=== PATIENT | female | born 1950 | race Caucasian/White ===

== ENCOUNTER 2024-06-28 19:47 | Emergency (ER) | payer OTHER, SELFPAY ==
--- NOTE | ~2024-06-28 | US_ITS ---
EXAMINATION: US venous doppler [facility] DATE: 06/28/2024 22:34 INDICATION: Left lower limb edema and pain. TECHNIQUE: Grayscale ultrasound images without and with compression and Doppler ultrasound images of the left lower extremity veins were obtained. COMPARISON: None. FINDINGS: The visualized portions of left common femoral vein, profunda (deep) femoral vein, femoral vein, popl iteal vein, peroneal veins, posterior tibial veins, and greater saphenous vein outflow are patent. Th ere is a thrombosed varicose vein in the left calf. IMPRESSION: 1. No deep venous thrombosis. 2. Thrombosed varicose vein in the left calf. Reviewed, dictated and finalized at location A. [facility]
[2024-06-28 19:56] VITALS: BP 123/55; PULSE 72; RESP 18; TEMP 36.8; O2SAT 100
[2024-06-28 21:39] VITALS: PULSE 82; RESP 20
--- NOTE | 2024-06-28 21:56 | ED.EXTPRO ---
HPI - Extremity Problem General Chief complaint: Extremity Problem,Nontraumatic Stated complaint: L ankle swelling Time Seen by Provider: 06/28/24 21:48 Source: patient Mode of arrival: ambulatory Limitations: no limitations History of Present Illness HPI Narrative: This is a 73-year-old female that presents to the emergency department for left extremity pain. Reports she has had swelling, warmth and pain around some varicose veins in the left calf. She has been evaluated by her primary provider for this. Had a ultrasound of the leg. Reports she had no blood clots but was started on Xarelto. She has been taking tramadol without relief. Denies fevers. Related Data Allergies Allergy/AdvReac Type Severity Reaction Status Date / Time adhesive tape AdvReac Unknown Verified 06/28/24 19:49 Review of Systems Review of Systems: CONSTITUTIONAL: Denies fever CARDIOVASCULAR: Reports edema. Denies chest pain RESPIRATORY: Denies dyspnea. All systems reviewed & are unremarkable except as noted in HPI and below PMFSH Past Medical History Medical History (Updated 06/28/24 @ 23:36 by Christina Brunson PA-C) History of hyperlipidemia Social History Social History (Updated 06/28/24 @ 21:58 by Christina Brunson PA-C) Substance use: never Exam Narrative: GENERAL: Well-appearing, well-nourished, and in no acute distress. HEAD: Normocephalic, atraumatic. EYES: EOMI. CHEST: Clear to auscultation. No respiratory distress. No wheezes rales or rhonchi HEART: Regular rate and rhythm. No murmur heard. Normal peripheral pulses. EXTREMITIES: Normal range of motion. Edema with mild redness noted surrounding varicosities to the left calf. Normal DP pulses SKIN: Warm, dry, no rash. NEURO: No focal deficits. Alert and oriented x3. PSYCH: Normal mood and affect Course Course Emergency Course: patient updated on workup and agrees with plan of care Vital Signs Vital signs: Vital Signs Temperature 98.2 F 06/28/24 19:56 Pulse Rate 72 06/28/24 19:56 Respiratory Rate 18 06/28/24 19:56 Blood Pressure 123/55 L 06/28/24 19:56 Pulse Oximetry 100 06/28/24 19:56 Oxygen Delivery Room Air 06/28/24 19:56 Temperature 98.2 F 06/28/24 19:56 Pulse Rate 68 06/28/24 22:53 Respiratory Rate 17 06/28/24 22:53 Blood Pressure 123/55 L 06/28/24 19:56 Pulse Oximetry 98 06/28/24 22:53 Oxygen Delivery Room Air 06/28/24 19:56 MDM - Extremity (Nontraumatic) MDM Narrative Medical decision making narrative: Patient presents the emergency department for pain in the left calf in the area of a varicosity. She is afebrile and nontoxic appearing. Her vitals are stable. Cbc without leukocytosis. ESR is mildly elevated, CRP is not elevated. Left lower extremity venous Doppler without evidence of DVT. Does show a thrombosed varicose vein. There is mild surrounding redness warmth. Patient will be started on oral antibiotic. She is also on anticoagulation prescribed by her PCP. She has follow-up with vascular in the next couple of days. She was given warnings to return to the ER Differential Diagnosis Differential diagnosis: Likely cellulitis, superficial thrombophlebitis and deep vein thrombosis of lower extremity Lab Data Attestation: I reviewed the patient's lab results. 06/28/24 22:32 06/28/24 22:32 Labs: Lab Results 06/28/24 Range/Units 22:32 WBC 4.4 L (4.5-10.0) K/mm3 RBC 3.60 L (4.2-5.4) M/mm3 Hgb 12.0 (12.0-15.0) g/dL Hct 35.5 L (37.0-47.0) % MCV 98.6 (80-100) fl MCH 33.3 (26-34) pg MCHC 33.8 (32-36) g/dl RDW 12.6 (11.5-14.5) % Plt Count 259 (150-375) k/mm3 MPV 8.6 (7.4-10.4) fl Immature Gran % (Auto) 0.5 (0-0.5) % Neut % (Auto) 51.3 (45.5-73.1) % Lymph % (Auto) 32.9 (18.3-44.2) % [place] % (Auto) 9.2 H (2.6-8.5) % Eos % (Auto) 5.6 H (0-4.4) % Baso % (Auto) 0.5 (0.2-1.2) % Lymph # (Auto) 1.46 (0.9-3.2) K/mm3 [place] # (Auto) 0.4 (0.1-0.6) K/mm3 Eos # (Auto) 0.3 (0-0.3) K/mm3 Baso # (Auto) 0.0 (0.0-0.1) K/mm3 Abs Immat Gran (auto) 0.02 (0.00-0.031) K/mm3 Absolute Neuts (auto) 2.3 (1.3-6.7) K/mm3 Absolute Nucleated RBC 0.000 (0.0-0.012) K/mm3 Nucleated RBC % 0.0 (0.0-0.2) % ESR 24 H (0-20) mm/hr Sodium 137 (137-145) mmol/L Potassium 3.5 (3.4-5.0) mmol/L Chloride 104 (98-107) mmol/L Carbon Dioxide 30 (22-30) mmol/L Anion Gap 3 L (4-12) mmol/L BUN 27 H (7-17) mg/dL Creatinine 0.70 (0.7-1.0) mg/dL Estim Creat Clear Calc 60 ml/min Estimated GFR > 60 (59 - ) Glucose 105 (65-110) mg/dL Calcium 10.8 H (8.4-10.2) mg/dL C-Reactive Protein < 0.5 (<1.0) mg/dL Imaging Data Radiologist's impression: ITS Impressions Venous Doppler Study 06/28/24 22:35 IMPRESSION: 1. No deep venous thrombosis. 2. Thrombosed varicose vein in the left calf. Critical Care Time Critical Care Time Critical Care Time: No Discharge Plan Discharge Clinical Impression: Superficial thrombophlebitis Qualifiers: Superficial thrombophlebitis-Involved body area: lower extremity Laterality: left Qualified Code(s): I80.02 - Phlebitis and thrombophlebitis of superficial vessels of left lower extremity Patient Disposition: Home, Self-Care Condition: Stable Instructions: Antibiotic Form, Superficial Thrombophlebitis (ED) Additional Instructions: Return to the Emergency Department if you experience fever, chest pain, shortness of breath, or any other symptoms that are concerning to you Take oral antibiotic as prescribed Follow up with vascular doctor as scheduled Patient Language: [place] Prescriptions: New cephalexin 500 mg capsule 500 mg PO Q6H 7 Days Qty: 28 0RF Follow-up/Referrals: PHYSICIAN NOT ON STAFF,NONSTAFF [Non-Staff] -
[2024-06-28 22:00] VITALS: PULSE 68; RESP 19; O2SAT 99
[2024-06-28 22:15] VITALS: PULSE 69; RESP 13; O2SAT 98
[2024-06-28 22:30] VITALS: PULSE 68; RESP 16; O2SAT 99
[2024-06-28 22:37] LABS: Basophils Percent Auto 0.5 % (0.2-1.2); Eosinophils Absolute Auto 0.3 K/mm3 (0-0.3); Eosinophils Percent Auto 5.6 % (0-4.4); Hematocrit 35.5 % (37.0-47.0); Immature Granulocyte Absolute 0.02 K/mm3 (0.00-0.031); Immature Granulocyte Percent A 0.5 % (0-0.5); Lymphocytes Absolute Auto 1.46 K/mm3 (0.9-3.2); Lymphocytes Percent Auto 32.9 % (18.3-44.2); Mean Corpuscular HGB Conc 33.8 g/dl (32-36); Mean Corpuscular Hemoglobin 33.3 pg (26-34); Mean Corpuscular Volume 98.6 fl (80-100); Mean Platelet Volume 8.6 fl (7.4-10.4); Monocytes Absolute Auto 0.4 K/mm3 (0.1-0.6); Monocytes Percent Auto 9.2 % (2.6-8.5); Neutrophils Absolute Auto 2.3 K/mm3 (1.3-6.7); Neutrophils Percent Auto 51.3 % (45.5-73.1); Platelet Count Result 259 k/mm3 (150-375); Red Cell Distribution Width 12.6 % (11.5-14.5); White Blood Count 4.4 K/mm3 (4.5-10.0)
[2024-06-28 22:48] LABS: Anion Gap 3 mmol/L (4-12); Blood Urea Nitrogen 27 mg/dL (7-17); CRP < 0.5 mg/dL (<1.0); Calcium 10.8 mg/dL (8.4-10.2); Carbon Dioxide 30 mmol/L (22-30); Chloride 104 mmol/L (98-107); Estimated CRCL calculation 60 ml/min; Estimated Glomerular Filt Rate > 60; Glucose 105 mg/dL (65-110); Potassium 3.5 mmol/L (3.4-5.0); Sodium 137 mmol/L (137-145)
[2024-06-28] MEDS: HYDROcodone/acetaminophen (*CRX) 5-325 MG TABLET 1 TAB PO (22:48)
[2024-06-28 22:53] VITALS: PULSE 68; RESP 17; O2SAT 98
[2024-06-28 23:32] LABS: Erythrocyte Sedimentation Rate 24 mm/hr (0-20)
[2024-06-29 00:16] VITALS: BP 126/59; PULSE 72; RESP 14; O2SAT 99
== END 2024-06-29 00:18 | disposition home or self-care (01) ==
PROVIDERS: Emergency Provider Physician Assistant
DX: I80.02 Phlebitis and thrombophlebitis of superficial vessels of left lower extremity (principal); E78.5 Hyperlipidemia, unspecified; Z79.01 Long term (current) use of anticoagulants
CPT/HCPCS: 36415; 80048; 85025; 85652; 86140; 93971; 99284; A9270

== ENCOUNTER 2025-03-25 08:13 | Outpatient (CLI) | payer OTHER, SELFPAY ==
[2025-03-25 08:48] LABS: Hematocrit 39.5 % (37.0-47.0); Hemoglobin 13.2 g/dL (12.0-15.0); Immature Granulocyte Percent A 0.2 % (0-0.5); Lymphocytes Absolute Auto 1.15 K/mm3 (0.9-3.2); Mean Corpuscular HGB Conc 33.4 g/dl (32-36); Mean Corpuscular Hemoglobin 33.0 pg (26-34); Mean Corpuscular Volume 98.8 fl (80-100); Nucleated Red Blood Cells Absolute Auto 0.000 K/mm3 (0.0-0.012); Nucleated Red Blood Cells Perc 0.0 % (0.0-0.2); Platelet Count Result 227 k/mm3 (150-375); Red Blood Count 4.00 M/mm3 (4.2-5.4); White Blood Count 4.6 K/mm3 (4.5-10.0)
--- OUTSIDE RECORDS SUMMARY | 2025-03-25 09:00 | XMS_ITS | Clinical Summary ---
Author Organization [facility] Address [address] [place] [address] Care Team Providers Care Auto Cleaner Name Role Phone Narciso Snow DO Primary Care Provider [phone] Source Comments [facility],non-owned Affiliates and Associated Physician Practices is amultiple site organization consisting of ambulatory clinics and hospital sitesin [place], [place], [place] and [place]. This disclosure is being madepursuant to the Care Everywhere program and may not contain all information available regarding this patient. Last updated 18.[facility] [employer] Allergies Active Allergy Reactions Criticality Noted Date Comments Adhesive Sensitivity Urticaria Medium 12/25/2018 Amlodipine Base Other 11/11/2021 Codeine Unknown 11/11/2021 Penicillins Vomiting High 09/24/2014 Medications * Be aware that medications may not be up to date on this document. Alwaysverify current medications with the patient. meclizine (ANTIVERT) 25 MG tablet Take 1 tablet by mouth 3 times daily as needed for Dizziness 21 tablet 9 Active hydrALAZINE (APRESOLINE) 50 MG tablet Take 50 mg by mouth at bedtime Active Turmeric 500 MG Take by mouth at bedtime Active CINNAMON PO Take 100 mg by mouth at bedtime Active rosuvastatin (CRESTOR) 40 MG tablet Take 40 mg by mouth once daily Active irbesartan (AVAPRO) 300 MG tablet Take 300 mg by mouth once daily Active alendronate (FOSAMAX) 70 MG tablet PLEASE SEE ATTACHED FOR DETAILED DIRECTIONS 2 Active calcium carbonate (OS-SHANTELL 500) 1250 (500 Ca) MG tablet Take by mouth every 12 hours 2 Active celecoxib (CELEBREX) 200 MG capsule Take 1 capsule by mouth every 24 hours 2 Active vitamin D3 (CHOLECALCIFERO L) (25 MCG) 1000 UNIT capsule Take by mouth every 24 hours 2 Active clobetasol (TEMOVATE) 0.05 % ointment Apply to affected area every 12 hours Active hydroCHLOROthia zide (HYDRODIURIL) 25 MG tablet Take 1 tablet by mouth once daily 2 Active metoprolol succinate XL 24hr (TOPROL XL) 50 MG tablet TAKE 1 TABLET BY MOUTH EVERYDAY AT BEDTIME 2 Active triamcinolone acetonide (KENALOG) 0.1 % cream APPLY TOPICALLY 2 TIMES EVERY DAY A THIN LAYER TO THE LEFT LOWER LEG 2 Active zinc gluconate 50 MG tablet Take by mouth every 24 hours 2 Active Active Problems Problem Noted Date Diagnosed Date High cholesterol 11/11/2021 Family history of other specified conditions 10/2021 Vitamin D deficiency 02/23/2021 Myalgia due to statin 02/23/2021 Generalized OA 02/23/2021 Generalized anxiety disorder 10/20/2020 Gastroesophageal reflux disease 10/20/2020 Acute deep vein thrombosis (DVT) of right lower extremity 09/19/2019 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/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 Right rotator cuff tear arthropathy 05/07/2019 Vertigo 12/26/2018 Varicose veins of lower extremity 10/13/2017 Unspecified atrial fibrillation 11/18/2014 Symptomatic bradycardia 09/24/2014 Dizzy 09/24/2014 Dizziness and giddiness 11/29/2009 Hypertension 09/19/2008 Trigger finger 04/22/2008 Depressive disorder 04/21/2004 Psoriasis 12/20/2003 Allergic rhinitis due to pollen 12/10/2002 Immunizations Immunization Administration Dates Next Due [employer] primary monoval ent 12+ yr 0.3mL Purple cap 06/24/2021,11/23/2020,10/26/2020 TDAP (7yrs+) 10/05/2021 Family History Medical History Relation Name Comments Hypertension Mother Relation Name Status Comments Mother Social History Tobacco Use Types Packs/Day Years Used Date Smoking Tobacco: Never Smokeless Tobacco: Never Alcohol Use Standard Drinks/Week Comments Yes 0 (1 standard drink = 0.6 oz pur e alcohol) occassionally Comments Unknown Sex and Gender Information Value Date Recorded Sex Assigned at Not on file Legal Sex Female 6:03 AM LEASING COORDINATOR Gender Identity Not on file Sexual Orientation Not on file Last Filed Vital Signs Vital Sign Reading Time Taken Comments Blood Pressure 130/67 09/02/2019 9:10 AM LEASING COORDINATOR Pulse 65 09/02/2019 9:10 AM LEASING COORDINATOR Temperature 36.2 C (97.2 F) 09/02/2019 7:15 AM LEASING COORDINATOR Respiratory Rate 18 09/02/2019 7:15 AM LEASING COORDINATOR Oxygen Saturation 92% 09/02/2019 7:15 AM LEASING COORDINATOR Inhaled Oxygen Concentration - - Weight 78.5 kg (173 lb) 11/11/2021 8:39 AM CDT Height 167.6 cm (5' 6) 11/11/2021 8:39 AM CDT Body Mass Index 27.92 11/11/2021 8:39 AM CDT Plan of Treatment Health Maintenance Due Date Last Done Comments BONE DENSITY TESTING 1950 COLOGUARD (AGES 45-75) - COL ON CA SCREENING 1950 CT COLONOGRAPHY - COLON CA SCREENING 1950 FIT - COLON CA SCREENING 1950 FLEX SIG - COLON CA SCREENING 1950 MAMMOGRAM 1950 HEPATITIS C SCREENING 06/29/1968 PNEUMOCOCCAL VACCINE 50+ (1 of 1 - PCV) 2000 ZOSTER VACCINE (1 of 2) 2000 DEPRESSION SCREENING 07/11/2024 COVID-19 VACCINE (4 - 2024-2 6 season) 2025 06/24/2021, 11/23/2020, 10/26/2020 INFLUENZA VACCINE (#1) 2025 Respiratory Syncytial Virus (RSV) Vaccine Pt: or over 60 yrs (1 - 1-dose 75+ series) 2025 COLON MONITORING 05/04/2031 05/04/2021 COLONOSCOPY - COLON CA SCREENING 05/04/2031 05/04/2021 Colorectal Cancer Screening 05/04/2031 DTAP/TDAP/TD VACCINES (2 - T d or Tdap) 10/06/2031 10/05/2021 HEPATITIS B VACCINE Aged Out No longe r eligible based on patient's age to complete this topic HIB VACCINE Aged Out No longer eligi ble based on patient's age to complete this topic HPV VACCINE Aged Out No longer eligi ble based on patient's age to complete this topic MENINGOCOCCAL (Group B) VACCINE SHARED DECISION-MAKING Aged Out No longer eligible based on patient's age to complete this topic MENINGOCOCCAL GROUPS A/C/Y/W VACCINE Aged Out No longer eligible b ased on patient's age to complete this topic Medical Devices Implanted Type Area Maintenance Services Dispatcher Device Identifier Shelf Expiration Date Model / Serial / Lot Screw 4.75mm 25mm 3.5mm Lck Fx Ang Hex Implanted:Qty: 1 on 08/31/2019 by Malissa Villa MD at [facility] Right: Shoulder [employer] 07/21/2029 [id number] / / [id number] Vivacit E Polyethylene Bearing Standard 36mm Implanted:Qty: 1 on 08/31/2019 by Malissa Villa MD at [facility] Right: Shoulder 08/10/2024 [id number] / / [id number] Screw 4.75mm 15mm 3.5mm Lck Fx Ang Hex Implanted:Qty: 1 on 08/31/2019 by Malissa Villa MD at [facility] Right: Shoulder [employer] 04/24/2029 [id number] / / [id number] Bsplt Tib Cmprh 25mm Mini Tpr Adpr Rvrs Implanted:Qty: 1 on 08/31/2019 by Malissa Villa MD at [facility] Right: Shoulder [employer] 07/18/2029 [id number] / / [id number] Screw 4.75mm 15mm 3.5mm Lck Fx Ang Hex Implanted:Qty: 1 on 08/31/2019 by Malissa Villa MD at [facility] Right: Shoulder [employer] 04/24/2029 [id number] / / [id number] Stem Hum W/Align Tpr 45deg 11mm X 55mm Implanted:Qty: 1 on 08/31/2019 by Malissa Villa MD at [facility] Right: Shoulder [employer] 03/06/2029 [id number] / / [id number] Cmpnt Glnd 36mm Std Glenosphere Clr Cd Implanted:Qty: 1 on 08/31/2019 by Malissa Villa MD at [facility] Right: Shoulder [employer] 03/25/2029 [id number] / / [id number] Mini Humeral Tray Standard Thickness 40mm Diameter +0mm Taper Offset Implanted:Qty: 1 on 08/31/2019 by Malissa Villa MD at [facility] Right: Shoulder [employer] 08/10/2029 [id number] / / [id number] Screw 6.5mm 25mm 3.5mm Cntr Hex Shldr Implanted:Qty: 1 on 08/31/2019 by Malissa Villa MD at [facility] Right: Shoulder [employer] 04/23/2029 [id number] / / [id number] Screw 4.75mm 15mm 3.5mm Lck Fx Ang Hex Implanted:Qty: 1 on 08/31/2019 by Malissa Villa MD at [facility] Right: Shoulder [employer] 08/01/2029 [id number] / / [id number] Explanted Type Area Maintenance Services Dispatcher Device Identifier Shelf Expiration Date Model / Serial / Lot Pin Fx 9in 3.2mm Stnm Explanted:Qty: 1 on 08/31/2019 at [facility] Right: Shoulder [employer] [id number] / / Insurance [facility] MEDICARE Advance Directives * Full Code (Latest Code Status on File) Date Activated Date Inactivated Comments 08/31/2019 11:48 AM 09/02/2019 2:33 PM * Full Code Date Activated Date Inactivated Comments 12/26/2018 1:00 PM 12/27/2018 7:49 PM * Full Code Date Activated Date Inactivated Comments 09/24/2014 1:14 AM 09/24/2014 5:33 PM Care Teams Auto Cleaner Relationship Specialty Start Date End Date Narciso Snow DO [address] [place] [address] PCP - General 11/29/09
--- OUTSIDE RECORDS SUMMARY | 2025-03-25 09:00 | XMS_ITS | Clinical Summary ---
Author Organization [facility] Address [address] [place] [address] [place] [address] Care Team Providers Care Sand Conditioner Machine Name Role Phone Unavailable Primary Care Provider Unavailabl e Allergies Active Allergy Reactions Criticality Noted Date Comments Adhesive Tape-Silicones Rash Low 03/18/2025 Medications alendronate (FOSAMAX) 70 mg tablet Take 70 mg by mouth every 7 days. Active cholecalciferol, Vitamin D3, (VITAMIN D3) 25 mcg (1,000 unit) Capsule Take by mouth every 24 hours. 02/20/2025 Active hydrALAZINE (APRESOLINE) 50 mg tablet Take 50 mg by mouth. Active hydroCHLOROthiaz ghislaine 25 mg tablet Take 25 mg by mouth daily. Active Irbesartan (AVAPRO) 300 mg tablet Take 300 mg by mouth daily. Active meclizine (ANTIVERT) 25 mg tablet Take 25 mg by mouth 3 times daily. Active Active Problems Problem Noted Date Diagnosed Date Bilateral lower extremity edema 03/18/2025 Personal history of DVT (deep vein thrombosis) 0 03/18/2025 Encounters Date Type Department Care Team Description 03/21/2025 Telephone [facility] Oncology [facility] Hematology - [address] [place] [address] Neymar Molina MD Lab Auth 03/21/2025 Abstract [facility] - [address] [place] [address] Neymar Molina MD 03/18/2025 1:30 PM CDT Office Visit [facility] [address] [place] [phone] Brandee Belle MD Bilateral lower extremity edema (Primary Dx); Personal history of DVT (deep vein thrombosis) 02/28/2025 2:02 PM CDT - 02/28/2025 11:59 PM CDT Hospital Encounter [facility] [address] [place] [address] Shubham Snow, Discharge Disposition: Home or Self Care 02/28/2025 1:37 PM CDT - 02/28/2025 11:59 PM CDT Hospital Encounter [facility] [address] [place] [address] Shubham Snow, Discharge Disposition: Home or Self Care 02/28/2025 1:37 PM CDT - 02/28/2025 11:59 PM CDT Hospital Encounter [facility] [address] [place] [address] Shubham Snow, Discharge Disposition: Home or Self Care 02/26/2025 External Device Data [facility] Provider, Abstract 02/25/2025 Transcribe Orders Central Test Scheduling [address] [place] [id number] Shubham Snow, Screening for osteoporosis (Primary Dx) 02/13/2025 External Device Data [facility] Provider, Abstract 01/28/2025 9:12 AM CDT - 01/28/2025 11:59 PM CDT Hospital Encounter [facility] [address] [place] [address] Shubham Snow, Discharge Disposition: Home or Self Care from Last 3 Months Family History Medical History Relation Name Comments No Known Problems Brother 1 No Known Problems Brother 2 Hypertension Father Diabetes Mother Hypertension Mother No Known Problems Sister 1 No Known Problems Sister 2 Relation Name Status Comments Brother 1 Alive Brother 2 Alive Father Mother Sister 1 Alive Sister 2 Alive Social History Tobacco Use Types Packs/Day Years Used Date Smoking Tobacco: Never Smokeless Tobacco: Never Tobacco Cessation:Counseling Given: Not Answered Alcohol Use Standard Drinks/Week Comments Yes 0 (1 standard drink = 0.6 oz pur e alcohol) Occasionally Comments No Sex and Gender Information Value Date Recorded Sex Assigned at Not on file 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 Gender Identity Not on file Sexual Orientation Not on file Last Filed Vital Signs Vital Sign Reading Time Taken Comments Blood Pressure 117/76 03/18/2025 1:17 PM CDT Pulse 73 03/18/2025 1:17 PM CDT Temperature 36.1 C (96.9 F) 03/18/2025 1:17 PM CDT Respiratory Rate 15 03/18/2025 1:17 PM CDT Oxygen Saturation 97% 03/18/2025 1:17 PM CDT Inhaled Oxygen Concentration - - Weight 74.8 kg (164 lb 12.8 oz) 03/18/2025 1:17 PM CDT Height 167.6 cm (5' 6) 03/18/2025 1:17 PM CDT Body Mass Index 26.6 03/18/2025 1:17 PM CDT Plan of Treatment Upcoming Encounters Date Type Department Care Team (Late st Contact Info) Description 04/01/2025 7:30 AM CDT Appointment [facility] [address] [address] Brandee Belle MD [address] [place] [address] 04/15/2025 4:30 PM CDT Telephone Check Up [facility] Oncology [facility] Hematology - [address]k [address] [place] [address] Neymar Molina MD [address] [facility] [address] [place] [address] Health Maintenance Due Date Last Done Comments COLORECTAL SCREENING 1995 Colorectal Cancer Screening 1995 FIT-DNA Q 3 years 1995 FIT/FOBT Q 1 year 1995 Flex Sig/CT Colonography Q 5 years 1995 PNEUMOCOCCAL VACCINE 50+ YEA RS (1 of 1 - PCV) 2000 ZOSTER VACCINE (1 of 2) 2000 Medicare Advantage ([place]) Preventative Visit/Annual Wellness Visit 07/11/2024 INFLUENZA VACCINE (#1) 2025 RSV VACCINE (60+ or ) (1 - 1-dose 75+ series) 2025 BREAST CANCER SCREENING 01/28/2026 01/29/20 25, 11/28/2023, 11/15/2022, Additional history exists OSTEOPOROSIS SCREENING 02/28/2030 5, 10/19/2021, 07/09/2016 DTAP/TDAP/TD VACCINES (2 - T d or Tdap) 10/06/2031 10/05/2021 Procedures Procedure Name Priority Date/Time Associated Diagnosis Comments MRI UPR EXT JOINT WO CONT LEFT Routine 02/28/2025 3:55 PM CDT Muscle weakness XR CHEST PA AND LATERAL 2 VW Routine 02/28/2025 2:[address] BONE DENS STUDY 1+ SITE AXIAL Routine 02/28/2025 2:16 PM CDT Screening for osteoporosis MAMMO 3D ELPIDIO SCREEN BILAT W OR WO CAD Routine 01/28/2025 9:43 AM CDT Visit for screening mammogram from Last 3 Months Results * MRI UPR EXT JOINT WO CONT LEFT (02/28/2025 3:55 PM CDT) Anatomical Region Laterality Modality Upper Extremity Magnetic Resonan ce 02/28/2025 3:55 PM CDT Impressions 03/01/2025 6:44 AM CDT IMPRESSION: Partial tears of the supraspinatus and infraspinatus tendons. Rotator cuff tendinopathy. Mild degenerative changes of the left shoulder. Chronic degeneration of the superior labrum. Narrative 03/01/2025 6:44 AM CDT EXAM: MRI UPR EXT JOINT WO CONT LEFT STUDY DATE: 02/28/2025 3:55 PM CLINICAL INDICATION: Muscle weakness COMPARISON: None PROCEDURE: Axial, coronal and sagittal MR images of the left shoulder were obtained without intravenous contrast. FINDINGS: There are foci of susceptibility artifact in the soft tissues superolateral to the humeral head, may be related to prior surgery. There is moderate supraspinatus tendinopathy with partial interstitial tear of the tendon proximal to the insertion (series 7, image #9). There is mild infraspinatus tendinopathy with superimposed partial interstitial tear of the tendon proximal to the insertion (series 7, image four). The teres minor is intact. There is moderate subscapularis tendinopathy. There is moderate tendinopathy of the intra-articular portion of the long head of the biceps tendon. There is small amount of fluid in the proximal bicipital groove. There is mild acromioclavicular joint arthropathy. The coracoclavicular and coracoacromial ligaments are intact. There is mild glenohumeral joint arthropathy with partial thickness chondral loss of the humeral head. There is chronic degeneration of the superior labrum. No acute fracture. There is subchondral cystic changes in the greater tuberosity. There is a trace glenohumeral joint effusion. There is a small amount of fluid in the superior subscapularis recess. There is [id number] amount of fluid in the subacromial/subdeltoid bursa. Procedure Note Ninfa Sorensen MD - 03/01/2025 EXAM: MRI UPR EXT JOINT WO CONT LEFT STUDY DATE: 02/28/2025 3:55 PM CLINICAL INDICATION: Muscle weakness COMPARISON: None PROCEDURE: Axial, coronal and sagittal MR images of the left shoulder were obtained without intravenous contrast. FINDINGS: There are foci of susceptibility artifact in the soft tissues superolateral to the humeral head, may be related to prior surgery. There is moderate supraspinatus tendinopathy with partial interstitial tear of the tendon proximal to the insertion (series 7, image #9). There is mild infraspinatus tendinopathy with superimposed partial interstitial tear of the tendon proximal to the insertion (series 7, image four). The teres minor is intact. There is moderate subscapularis tendinopathy. There is moderate tendinopathy of the intra-articular portion of the long head of the biceps tendon. There is small amount of fluid in the proximal bicipital groove. There is mild acromioclavicular joint arthropathy. The coracoclavicular and coracoacromial ligaments are intact. There is mild glenohumeral joint arthropathy with partial thickness chondral loss of the humeral head. There is chronic degeneration of the superior labrum. No acute fracture. There is subchondral cystic changes in the greater tuberosity. There is a trace glenohumeral joint effusion. There is a small amount of fluid in the superior subscapularis recess. There is [id number] amount of fluid in the subacromial/subdeltoid bursa. IMPRESSION: Partial tears of the supraspinatus and infraspinatus tendons. Rotator cuff tendinopathy. Mild degenerative changes of the left shoulder. Chronic degeneration of the superior labrum. Shubahm Snow DO MR ORDERABLES Final R esult * XR CHEST PA AND LATERAL 2 VW (02/28/2025 2:33 PM CDT) Anatomical Region Laterality Modality Chest Computed Radiogr aphy 02/28/2025 2:33 PM CDT Impressions 02/28/2025 2:41 PM CDT IMPRESSION: Mild scarring in the left lung base. Narrative 02/28/2025 2:41 PM CDT EXAM: XR CHEST PA AND LATERAL 2 VW STUDY DATE: 02/28/2025 2:33 PM CLINICAL INDICATION: Cough COMPARISON: Chest radiographs dated 09/04/2018 PROCEDURE: Frontal and lateral radiographs of the chest are obtained. FINDINGS: No focal consolidation. There is minor scarring versus atelectasis in the left lower lobe. No pleural effusions or pneumothorax. The cardiac silhouette is within normal limits. There are moderate calcifications of the aortic arch. There is osteopenia. There is a right shoulder arthroplasty. No acute osseous or soft tissue abnormalities. Procedure Note Ninfa Sorensen MD - 02/28/2025 EXAM: XR CHEST PA AND LATERAL 2 VW STUDY DATE: 02/28/2025 2:33 PM CLINICAL INDICATION: Cough COMPARISON: Chest radiographs dated 09/04/2018 PROCEDURE: Frontal and lateral radiographs of the chest are obtained. FINDINGS: No focal consolidation. There is minor scarring versus atelectasis in the left lower lobe. No pleural effusions or pneumothorax. The cardiac silhouette is within normal limits. There are moderate calcifications of the aortic arch. There is osteopenia. There is a right shoulder arthroplasty. No acute osseous or soft tissue abnormalities. IMPRESSION: Mild scarring in the left lung base. Shubham Moya Snow DO DIAGNOSTIC IMAGING [place] Final Result * CT BONE DENS STUDY 1+ SITE AXIAL (02/28/2025 2:16 PM CDT) Anatomical Region Laterality Modality Computed Tomogra phy 02/28/2025 1:58 PM CDT Narrative 02/28/2025 2:20 PM CDT EXAM: CT BONE DENS STUDY 1+ SITE AXIAL STUDY DATE02/28/2025 2:16 PM INDICATION: Screening for osteoporosis Attached is the QCT Bone Mineral Density Reports for CHLOE ARTEAGA. For the spine, a true volumetric BMD measurement was made and, rather than using T-Scores, was compared to guideline thresholds from the [employer]. For the hip, a DXA-equivalent T-Score was calculated for comparison to the WHO classification at the proximal femur. This T-Score may also be used for fracture risk probability calculation in the WHO FRAX tool with T-Score as the appropriate DXA setting. INCIDENTAL LIMITED CT FINDINGS: There is cholelithiasis. There are subcentimeter nonobstructing left renal stones. There are moderate calcifications of the abdominal aorta. There are degenerative changes of the lumbar spine. Procedure Note Ninfa Sorensen MD - 02/28/2025 EXAM: CT BONE DENS STUDY 1+ SITE AXIAL STUDY DATE02/28/2025 2:16 PM INDICATION: Screening for osteoporosis Attached is the QCT Bone Mineral Density Reports for [employer]E [employer]. For the spine, a true volumetric BMD measurement was made and, rather than using T-Scores, was compared to guideline thresholds from the [employer]. For the hip, a DXA-equivalent T-Score was calculated for comparison to the WHO classification at the proximal femur. This T-Score may also be used for fracture risk probability calculation in the WHO FRAX tool with T-Score as the appropriate DXA setting. INCIDENTAL LIMITED CT FINDINGS: There is cholelithiasis. There are subcentimeter nonobstructing left renal stones. There are moderate calcifications of the abdominal aorta. There are degenerative changes of the lumbar spine. Shubham Snow DO CT ORDERABLES Final R esult * MAMMO 3D ELPIDIO SCREEN BILAT W OR WO CAD (01/28/2025 9:43 AM CDT) Anatomical Region Laterality Modality Breast Bilateral Mammography 01/28/2025 9:43 AM CDT Impressions 01/28/2025 9:47 AM CDT IMPRESSION: NO MAMMOGRAPHIC EVIDENCE OF MALIGNANCY. OVERALL FINAL ASSESSMENT: BI-RADS CATEGORY 1: Negative. ROUTINE SCREENING MAMMOGRAPHY IS RECOMMENDED IN 12 MONTHS. A normal letter will be sent to patient. Narrative 01/28/2025 9:47 AM CDT EXAM: MAMMO 3D ELPIDIO SCREEN BILAT W OR WO CAD STUDY DATE: 01/28/2025 9:43 AM CLINICAL INDICATION: 74 years old female presents for routine screening mammography. COMPARISON: Prior mammograms, the most recent dated 11/28/2023 PROCEDURE: CC and MLO digital mammographic views of the bilateral breasts are obtained. Computer Aided Detection (CAD) was utilized. Tomosynthesis was done with all views. FINDINGS: Breast Density: Scattered fibroglandular densities. Right breast: There are no spiculated masses, suspicious microcalcifications or areas of architectural distortion in the right breast. Left breast: There are no spiculated masses, suspicious microcalcifications or areas of architectural distortion in the left breast. Shubham Snow DO MAMMO ORDERABLES Final Result from Last 3 Months Insurance [facility]
--- OUTSIDE RECORDS SUMMARY | 2025-03-25 09:00 | XMS_ITS | Clinical Summary ---
Author Organization [facility] Address [address] [place] [id number] Care Team Providers Care Engineering Systems Analyst Name Role Phone Narciso Snow Primary Care Provider [phone] Allergies Active Allergy Reactions Criticality Noted Date Comments Tape Rash Low 08/15/2021 Active Problems Problem Noted Date Diagnosed Date High cholesterol Social History Tobacco Use Types Packs/Day Years Used Date Smoking Tobacco: Never Smokeless Tobacco: Never Alcohol Use Standard Drinks/Week Comments Not Currently 0 (1 standard drink = 0.6 oz pur e alcohol) Comments No Sex and Gender Information Value Date Recorded Sex Assigned at Not on file 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 Gender Identity Not on file Sexual Orientation Not on file Last Filed Vital Signs Vital Sign Reading Time Taken Comments Blood Pressure 155/80 08/15/2021 1:59 PM HELIOTHERAPIST Pulse 54 08/15/2021 1:59 PM HELIOTHERAPIST Temperature 36.5 C (97.7 F) 08/15/2021 11:00 AM HELIOTHERAPIST Respiratory Rate 16 08/15/2021 1:59 PM HELIOTHERAPIST Oxygen Saturation 98% 08/15/2021 1:59 PM HELIOTHERAPIST Inhaled Oxygen Concentration - - Weight 84.6 kg (186 lb 8.2 oz) 08/15/2021 11:00 AM HELIOTHERAPIST Height 170.2 cm (5' 7) 08/15/2021 11:00 AM HELIOTHERAPIST Body Mass Index 29.21 08/15/2021 11:00 AM HELIOTHERAPIST Plan of Treatment Health Maintenance Due Date Last Done Comments Colorectal Cancer Screening Colonoscopy (10 Years) 1950 Hepatitis C 1968 DTaP, Tdap and Td Vaccines ( 1 - Tdap) 1969 Mammogram Screening 1990 Zoster Vaccines (1 of 2) 2000 Pneumococcal Vaccine: 50+ Years (2 of 2 - PCV) 08/13/2010 08/13/2009 Annual Medicare Wellness Visit 2015 Dexa Scan (General) 2015 COVID-19 Vaccine (4 - 2024-2 6 season) 2025 06/24/2021, 11/23/2020, 10/26/2020 RSV Immunization or 60+ Years (1 - 1-dose 75+ series) 2025 Meningococcal B Vaccine Aged Out No l onger eligible based on patient's age to complete this topic Meningococcal Vaccine Aged Out No negro francisco j eligible based on patient's age to complete this topic RSV Immunizations Under 20 Months Aged Out No longer eligible b ased on patient's age to complete this topic Insurance [employer] Care Teams Engineering Systems Analyst Relationship Specialty Start Date End Date Narciso Snow DO [address] [place] [address] PCP - General FAMILY PRACTICE 08/15/21
[2025-03-25 09:52] LABS: Alanine Aminotransferase 18 U/L (6-35); Albumin Level 3.9 g/dL (3.5-5.1); Alkaline Phosphatase 91 U/L (38-126); Anion Gap 3 mmol/L (4-12); Aspartate Amino Transferase 25 U/L (14-36); Bilirubin,Total 0.3 mg/dL (0.2-1.3); Blood Urea Nitrogen 21 mg/dL (7-17); Calcium 10.8 mg/dL (8.4-10.2); Carbon Dioxide 29 mmol/L (22-30); Chloride 105 mmol/L (98-107); Estimated Glomerular Filt Rate > 60; Glucose 98 mg/dL (65-110); Potassium 4.5 mmol/L (3.4-5.0); Sodium 137 mmol/L (137-145); Total Protein 6.8 g/dL (6.3-8.2)
[2025-03-26 14:08] LABS: Beta-2 Glycoprotein I Ab, IgG <9 (0-20)
[2025-03-27 00:07] LABS: PTT-LA 29.4 sec (0.0-43.5)
== END 2025-03-25 08:14 | disposition home or self-care (01) ==
PROVIDERS: Visit Provider Internal Medicine Hematology & Oncology
DX: R60.0 Localized edema (principal); Z86.718 Personal history of other venous thrombosis and embolism
CPT/HCPCS: 36415; 80053; 85025; 85300; 85303; 85306; 85732; 86146